=== PATIENT | female | born 1930 | race Caucasian/White ===

== ENCOUNTER 2016-12-19 12:01 | Inpatient (IN) | payer MEDICARE, OTHER ==
[~2016-12-19] VITALS: Ht 149.9 cm; Wt 40.4 kg
--- NOTE | 2016-12-19 12:01 | NUR ---
IV LINE STARTED BLOOD DRAWN AND SENT TO LAB.
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
[2016-12-19] MEDS ORDERED: LORAZEPAM INJ 2 MG/ML VIAL ONE (12:14)
[2016-12-19 12:17] LABS: BASOPHILS # (AUTO) 0.1 /CMM (0.0-0.2); BASOPHILS % (AUTO) 0.7 % (0.0-2.0); EOSINOPHILS # (AUTO) 0.2 /CMM (0.0-0.7); EOSINOPHILS % (AUTO) 2.6 % (0.0-6.0); HEMATOCRIT 40 % (33-45); HEMOGLOBIN 13.4 g/dL (11.5-14.8); LYMPHOCYTES # (AUTO) 1.6 /CMM (0.8-4.8); LYMPHOCYTES % (AUTO) 22.1 % (20.0-44.0); MEAN CORPUSCULAR HEMOGLOBIN 30 PG (26.0-33.0); MEAN CORPUSCULAR HGB CONC 34 g/dl (31.0-36.0); MEAN CORPUSCULAR VOLUME 87 fL (82-100); MONOCYTES # (AUTO) 0.5 /CMM (0.1-1.30); MONOCYTES % (AUTO) 7.3 % (2.0-12.0); NEUTROPHILS # (AUTO) 4.9 /CMM (1.8-8.9); NEUTROPHILS % (AUTO) 67.3 % (43.0-81.0); PLATELET COUNT (AUTO) 351 /CMM (150-450); RDW COEFFICIENT OF VARIATION 12.8 (11.5-15.0); RED BLOOD CELL COUNT(AUTO) 4.55 MIL/uL (4.0-5.2); WHITE BLOOD COUNT (AUTO) 7.3 K/uL (4.3-11.0)
[2016-12-19 12:25] LABS: INR 0.99 (0.87-1.13); PROTHROMBIN TIME 10.3 SECS (9.5-12.7)
--- NOTE | 2016-12-19 12:25 | NUR ---
PATIENT TAKEN TO CT SCAN VIA STRETCHER.
[2016-12-19 12:28] LABS: CALCIUM, SERUM 8.9 mg/dL (8.5-10.1); CARBON DIOXIDE 28 mmol/L (21-32); CHLORIDE 109 mmol/L (98-107); CREATININE 0.9 mg/dL (0.6-1.3); GLUCOSE 85 mg/dL (74-106); POTASSIUM 4.4 mmol/L (3.5-5.1); SODIUM SERUM 143 mmol/L (136-145); UREA NITROGEN, BLOOD 25 mg/dL (7-18)
[2016-12-19 12:30] LABS: TROPONIN I < 0.017 ng/mL (0.00-0.056)
[2016-12-19] MEDS ORDERED: LORAZEPAM INJ 2 MG/ML VIAL IV ONE (12:30)
--- NOTE | 2016-12-19 14:57 | NUR ---
[phone] [facility] DAUGHTER
--- NOTE | 2016-12-19 15:06 | NUR ---
CALLED CRYSTAL, WEIGHT CONTROL ENGINEER, TO COME SEE PT
--- NOTE | 2016-12-19 15:38 | NUR ---
MARÍA received a call from Vianca in ED requesting to assess pt. since she is ready for discharge and they cannot get hold of pt's daughter Zoey. MARÍA contacted Zoey who informed SW that her mom is unable to care for herself at home and she would like to speak with the doctor. MARÍA informed Zoey she will go to ED and call her from there. signal tower operator Ron called pt's daughter Zoey regarding pt's disposition. MARÍA met with pt. bedside. Pt. is alert and oriented x 4. Pt. lives with her daughter Zoey and a roommate in [place]. MARÍA inquired with pt. if she has a caregiver at home. Pt. stated "everyone pitches in" MARÍA asked pt. if she would like to be placed in a [facility] facility and pt. stated., " absolutely no". MARÍA offered pt. home health services which pt. is open to receiving at home. MARÍA informed MINH Fonseca that pt. is interested in home health. MARÍA will inform egg caser Sayda to arrange for home health for pt. MINH Fonseca informed MARÍA he will contact pt's daughter Zoey regarding discharge plan. MARÍA followed up with egg caser Sayda regarding home health. Sayda informed MARÍA she will arrange home health and follow up with ROSA Fonesca in ED.
--- NOTE | 2016-12-19 16:35 | NUR ---
REKHA TOTH, MIKAYLA FRAUSTO NP TENANT COORDINATOR
--- NOTE | 2016-12-19 16:36 | NUR ---
CALLED NURSING SUP. FOR MS BED
[2016-12-19] MEDS ORDERED: hydrALAZINE HCL IV 20 MG VIAL ONE (16:55)
--- NOTE | 2016-12-19 16:55 | NUR ---
REPORT GIVEN TO DEDE ON MS 2 FOR CONTINUITY OF CARE
[2016-12-19] MEDS ORDERED: hydrALAZINE HCL IV 20 MG VIAL IV ONE (17:00)
--- NOTE | 2016-12-19 17:05 | NUR ---
PATIENT AND DAUGHTER UNABLE TO RECALL HOME MEDICATIONS AT THIS TIME. BOTH INFORMED TO PROVIDE HOSPITAL THE HOME MEDICATIONS AT EARLIEST CONVENIENCE.
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
[2016-12-19] MEDS ORDERED: MAG HYDROX/AL HYDROX/SIMETH 30 ML UDC PO PRN (19:00)
[2016-12-19] MEDS ORDERED: Z GUARD REMEDY 2 OZ OINT TP PRN (19:00)
[2016-12-19] MEDS ORDERED: ZOLPIDEM TARTRATE 5 MG TABLET PO PRN (19:00)
[2016-12-19] MEDS ORDERED: ACETAMINOPHEN 325 MG TABLET PO PRN (19:00)
[2016-12-19] MEDS ORDERED: ONDANSETRON HCL/PF 4 MG/2 ML VIAL IVP PRN (19:00)
[2016-12-19] MEDS ORDERED: hydrALAZINE HCL 10 MG TABLET PO PRN (19:00)
--- NOTE | 2016-12-19 19:32 | NUR ---
MS RN NOTES RECEIVED PT IN BED, AWAKE, A/O X 3. VERBALLY RESPONSIVE. NO DISTRESS, NO SOB NOTED. RESPIRATION IS EVEN AND UNLABORED. IV SITE ON LAC INTACT AND PATENT, NO S/S OF INFILTRATION NOTED. PT IS ON CARDIAC DIET SARAH WELL. ALL NEEDS ATTENDED AND MET. KEPT COMFORTABLE. SAFETY PRECAUTIONS OBSERVED. BED ON LOWEST LEVEL. CALL LIGHT WITHIN REACH. WILL CONTINUE TO MONITOR.
[2016-12-19 20:00] VITALS: BP 144/93
[2016-12-19 22:00] VITALS: BP 146/93
[2016-12-20 06:23] LABS: BASOPHILS # (AUTO) 0.1 /CMM (0.0-0.2); BASOPHILS % (AUTO) 1.1 % (0.0-2.0); EOSINOPHILS # (AUTO) 0.2 /CMM (0.0-0.7); EOSINOPHILS % (AUTO) 3.5 % (0.0-6.0); HEMATOCRIT 39 % (33-45); LYMPHOCYTES # (AUTO) 1.7 /CMM (0.8-4.8); LYMPHOCYTES % (AUTO) 28.2 % (20.0-44.0); MEAN CORPUSCULAR HEMOGLOBIN 30 PG (26.0-33.0); MEAN CORPUSCULAR HGB CONC 33 g/dl (31.0-36.0); MEAN CORPUSCULAR VOLUME 89 fL (82-100); MONOCYTES # (AUTO) 0.5 /CMM (0.1-1.30); MONOCYTES % (AUTO) 7.5 % (2.0-12.0); NEUTROPHILS # (AUTO) 3.7 /CMM (1.8-8.9); NEUTROPHILS % (AUTO) 59.7 % (43.0-81.0); PLATELET COUNT (AUTO) 297 /CMM (150-450); RDW COEFFICIENT OF VARIATION 13.8 (11.5-15.0); RED BLOOD CELL COUNT(AUTO) 4.39 MIL/uL (4.0-5.2); WHITE BLOOD COUNT (AUTO) 6.2 K/uL (4.3-11.0)
[2016-12-20 06:43] LABS: CARBON DIOXIDE 27 mmol/L (21-32); CHLORIDE 110 mmol/L (98-107); GLUCOSE 83 mg/dL (74-106); SODIUM SERUM 145 mmol/L (136-145)
[2016-12-20 06:44] LABS: CALCIUM, SERUM 8.7 mg/dL (8.5-10.1); CREATININE 0.8 mg/dL (0.6-1.3); MAGNESIUM 1.8 mg/dL (1.8-2.4); PHOSPHORUS 3.4 mg/dL (2.5-4.9); UREA NITROGEN, BLOOD 23 mg/dL (7-18)
[2016-12-20 06:45] LABS: CHOLESTEROL 155 mg/dL (<200); HDL CHOLESTEROL 44 mg/dL (40-60); LDL 83 mg/dL (0-99); TRIGLYCERIDES 65 mg/dL (30-150)
--- NOTE | 2016-12-20 07:19 | NUR ---
MS RN OPENING NOTES PATIENT RECEIVED AWAKE IN BED IN NO ACUTE SIGNS OF DISTRESS. A/O X 3, NO C/O PAIN OR DISCOMFORTS AT THIS TIME. ON ROOM AIR, RESPIRATION IS EVEN AND UNLABORED. IV ACCESS ON LEFT AC G#18 AND RIGHT FA G#20 BOTH INTACT AND PATENT. BED IN LOW POSITION AND LOCKED. CALL LIGHT WITHIN REACH. WILL MAINTAIN ALL SAFETY MEASURES AND WILL CONTINUE TO MONITOR PT ACCORDINGLY
--- NOTE | 2016-12-20 07:25 | NUR ---
MS RN NOTES PT IN BED, RESTING COMFORTABLY AT THIS TIME, AROUSES EASILY. A/O X 3. VERBALLY RESPONSIVE. NO DISTRESS, NO SOB NOTED. RESPIRATION IS EVEN AND UNLABORED. IV SITE ON LAC INTACT AND PATENT, NO S/S OF INFILTRATION NOTED. PT IS ON CARDIAC DIET SARAH WELL. ALL NEEDS ATTENDED AND MET. KEPT COMFORTABLE. SAFETY PRECAUTIONS OBSERVED. BED ON LOWEST LEVEL. CALL LIGHT WITHIN REACH. ENDORSED TO MINH AGUAYO FOR DAYANA. .
[2016-12-20 08:00] VITALS: BP 134/81
[2016-12-20] MEDS: PANTOPRAZOLE 40 MG TABLET.DR PO SCH (08:41)
[2016-12-20] MEDS: AMLODIPINE BESYLATE 2.5 MG TABLET PO SCH (08:41)
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
--- NOTE | 2016-12-20 11:38 | NUR ---
RN NOTES COLLECTED URINE SPECIMEN FOR URINE CX AND URINALYSIS.
[2016-12-20 11:52] LABS: APPEARANCE,URINE CLOUDY (CLEAR); BILIRUBIN,URINE NEGATIVE (NEGATIVE); BLOOD, URINE NEGATIVE Ery/uL (NEGATIVE); COLOR,URINE YELLOW (YELLOW); KETONES,URINE NEGATIVE (NEGATIVE); LEUKOCYTE ESTERASE ,URINE 1+ (NEGATIVE); NITRITE, URINE POSITIVE (NEGATIVE); PROTEIN,URINE NEGATIVE (NEGATIVE); UGLUCOSE NEGATIVE (NEGATIVE); UROBILINOGEN,URINE 0.2 EU/dL (0.2)
[2016-12-20 12:01] LABS: BACTERIA,URINE 1+ /HPF (None Seen); RBC,URINE 0-2 /HPF (0-2)
[2016-12-20 12:02] LABS: CALCIUM OXALATE CRYSTALS,UR Few /HPF (None Seen); SQUAMOUS EPITHELIAL CELL,UR Few /HPF (None Seen)
--- NOTE | 2016-12-20 12:18 | NUR ---
RN NOTES PATIENT U/A RESULTS CAME WITH HIGH URINE WBC 11-20 AND URINE BACTERIA 1+, REMOTE OPERATIONS PRODUCER JETT MADE AWARE WITH ORDER TO START MICROBID (NITROFURAN) 100MG CAP Q 12HRS FOR UTI. WILL CONTINUE TO MONITOR
[2016-12-20] MEDS ORDERED: NITROFURANTOIN/NITROFURAN MAC 100 MG CAPSULE PO SCH (14:30)
[2016-12-20 16:00] VITALS: BP 128/79
[2016-12-20] MEDS: HYDROCODONE/APAP 5/325MG 1 EACH TABLET PO PRN ×2 (18:51→23:41)
--- NOTE | 2016-12-20 19:03 | NUR ---
MS RN CLOSING NOTES PATIENT AWAKE AND RESTING IN BED. A/O X 3, VERBALLY RESPONSIVE WITH C/O PAIN ON LEFT HIP WITH INTENSITY OF 6/10, NORCO 5/325MG GIVEN. ON ROOM AIR, RESPIRATION IS EVEN AND UNLABORED. ALL NEEDS AND CARE PROVIDED WELL. IV ACCESS ON LEFT AC G#18 AND RIGHT FA G#20 BOTH INTACT AND PATENT. BED IN LOW POSITION AND LOCKED. CALL LIGHT WITHIN REACH. ALL SAFETY MEASURES MAINTAINED. WILL ENDORSED TO DIRECTOR GEOPHYSICAL LABORATORY NURSE FOR DAYANA.
--- NOTE | 2016-12-20 19:30 | NUR ---
MSRN FULLY AWAKE, ASSISTED LATE DINNER. HAD 2 BITES OF CHICKEN AND RICE. REFUSED TO EAT MORE, ABLE TO DRINK WATER LARGE AMOUNT. INCONTINENT, DIAPERED. STATED WANTED TO HAVE MEDICINE FOR SLEEP LATER, WILL CALL.
[2016-12-20 20:00] VITALS: BP 138/81
--- NOTE | 2016-12-20 20:55 | NUR ---
MSRN AMBIEN 5 MG PO ADMINISTERED REQUESTED. HS CARE STARTED. STATED HAD RELIEF OF PAIN FROM PAIN MEDS GIVEN AROUND PAST 6PM STATED BY PATIENT. REPOSITIONED, KEPT COMFORTABLE.
--- NOTE | 2016-12-20 23:50 | NUR ---
MSRN BACK PAIN KIKO LEFT SIDE NECK, NORCO ADMINISTERED. ALL NEEDS ATTENDED.
--- NOTE | 2016-12-21 06:30 | NUR ---
DELMY SLEPT WELL FROM [place]. CLOSELY WATCHED.
[2016-12-21 06:33] LABS: BASOPHILS # (AUTO) 0.1 /CMM (0.0-0.2); BASOPHILS % (AUTO) 1.2 % (0.0-2.0); EOSINOPHILS # (AUTO) 0.3 /CMM (0.0-0.7); EOSINOPHILS % (AUTO) 4.6 % (0.0-6.0); HEMATOCRIT 38 % (33-45); HEMOGLOBIN 12.6 g/dL (11.5-14.8); LYMPHOCYTES # (AUTO) 1.8 /CMM (0.8-4.8); LYMPHOCYTES % (AUTO) 26.3 % (20.0-44.0); MEAN CORPUSCULAR HEMOGLOBIN 30 PG (26.0-33.0); MEAN CORPUSCULAR HGB CONC 34 g/dl (31.0-36.0); MEAN CORPUSCULAR VOLUME 89 fL (82-100); MONOCYTES # (AUTO) 0.5 /CMM (0.1-1.30); MONOCYTES % (AUTO) 6.7 % (2.0-12.0); NEUTROPHILS # (AUTO) 4.2 /CMM (1.8-8.9); NEUTROPHILS % (AUTO) 61.2 % (43.0-81.0); PLATELET COUNT (AUTO) 285 /CMM (150-450); RDW COEFFICIENT OF VARIATION 13.8 (11.5-15.0); RED BLOOD CELL COUNT(AUTO) 4.26 MIL/uL (4.0-5.2); WHITE BLOOD COUNT (AUTO) 6.9 K/uL (4.3-11.0)
[2016-12-21 06:58] LABS: CALCIUM, SERUM 8.5 mg/dL (8.5-10.1); CARBON DIOXIDE 29 mmol/L (21-32); CHLORIDE 106 mmol/L (98-107); CREATININE 0.7 mg/dL (0.6-1.3); GLUCOSE 81 mg/dL (74-106); MAGNESIUM 1.8 mg/dL (1.8-2.4); PHOSPHORUS 3.4 mg/dL (2.5-4.9); POTASSIUM 4.1 mmol/L (3.5-5.1); SODIUM SERUM 139 mmol/L (136-145); UREA NITROGEN, BLOOD 19 mg/dL (7-18)
--- NOTE | 2016-12-21 07:10 | NUR ---
MS RN INITIAL NOTE REPORT RECEIVED AT THE BEDSIDE. PATIENT IS SLEEPING. NO SOB OR DISTRESS NOTED AT THIS TIME. PATIENT DOES NOT APPEAR TO BE IN PAIN, NO FACIAL GRIMACE NOTED. BED IN A LOW POSITION, CALL LIGHT WITHIN PATIENT REACH. WILL CONTINUE TO MONITOR.
[2016-12-21 08:00] VITALS: BP 131/71
[2016-12-21] MEDS: PANTOPRAZOLE 40 MG TABLET.DR PO SCH (08:05)
[2016-12-21] MEDS: AMLODIPINE BESYLATE 2.5 MG TABLET PO SCH (08:05)
[2016-12-21] MEDS: NITROFURANTOIN/NITROFURAN MAC 100 MG CAPSULE PO SCH ×2 (08:05→20:45)
[2016-12-21] MEDS: HYDROCODONE/APAP 5/325MG 1 EACH TABLET PO PRN ×2 (09:25→15:47)
--- NOTE | 2016-12-21 14:27 | NUR ---
RN NOTES PATIENT IS INDEPENDENT WITH TURNING, BUT TENDS TO FAVOR HER LEFT SIDE. PATIENT HAS BEEN ON HER LEFT SIDE FOR THE LAST 4 HOURS. EXPLAINED THE IMPORTANCE OF FREQUENT POSITION CHANGES, BUT PATIENT STATES THAT SHE IS COMFORTABLE IN THE POSITION AND DOES NOT WANT TO TURN.
[2016-12-21 16:00] VITALS: BP 133/69
[2016-12-21] MEDS ORDERED: DIAZEPAM 2 MG TABLET PO PRN (18:30)
[2016-12-21] MEDS: BOOST PLUS FOOD-CHOCLATE 237 ML BOX PO SCH (18:51)
[2016-12-21] MEDS: LORAZEPAM 1 MG TABLET PO PRN (18:52)
--- NOTE | 2016-12-21 18:59 | NUR ---
MS RN CLOSING NOTES NO SIGNIFICANT CHANGES IN PATIENT CONDITION THROUGHOUT THE SHIFT. NO SOB OR DISTRESS NOTED AT THIS TIME. PATIENT DENIES PAIN. BED IN A LOW POSITION, CALL LIGHT WITHIN PATIENT REACH. WILL ENDORSE FOR DAYANA.
[2016-12-21 20:00] VITALS: BP 169/72
--- NOTE | 2016-12-22 06:19 | NUR ---
MS RN NOTES AWAKE & RESPONSIVE. NOT IN ANY DISTRESS. NO SOB NOTED. DENIES ANY PAIN OR DISCOMFORT AT THIS TIME. AM CARE DONE. MONITORED ACCORDINGLY. CALL LIGHT WITHIN REACH. BED IN LOWEST POSITION. SR UP X 3 WITH BED ALARM ON FOR SAFETY. WILL ENDORSE TO NEXT SHIFT.
[2016-12-22] MEDS: HYDROCODONE/APAP 5/325MG 1 EACH TABLET PO PRN ×2 (06:25→17:43)
[2016-12-22 07:09] LABS: THYROID STIMULATING HORMONE 19.601 uIU/mL (0.358-3.74)
[2016-12-22 08:00] VITALS: BP 134/71
--- NOTE | 2016-12-22 08:14 | NUR ---
RN NOTES ATTEMPTED TO ADMINISTER MORNING MEDICATIONS. PATIENT STATES "I JUST WANT TO SLEEP, PLEASE COME BACK LATER." PATIENT IS ALSO NOT READY TO EAT BREAKFAST. WILL ATTEMPT TO ADMINISTER AGAIN SOON.
[2016-12-22] MEDS: NITROFURANTOIN/NITROFURAN MAC 100 MG CAPSULE PO SCH ×2 (09:11→20:57)
[2016-12-22] MEDS: AMLODIPINE BESYLATE 2.5 MG TABLET PO SCH (09:11)
[2016-12-22] MEDS: PANTOPRAZOLE 40 MG TABLET.DR PO SCH (09:11)
--- NOTE | 2016-12-22 09:12 | NUR ---
RN NOTES MORNING BOOST IS NOT ON THE FLOOR. CALLED [facility] WHO STATES THEY WILL DELIVER IT SOON THEY CAN.
[2016-12-22] MEDS: BOOST PLUS FOOD-CHOCLATE 237 ML BOX PO SCH ×2 (09:22→16:12)
[2016-12-22 16:00] VITALS: BP 131/78
[2016-12-22] MEDS ORDERED: DIAZEPAM 5 MG TABLET PO PRN (18:30)
--- NOTE | 2016-12-22 19:40 | NUR ---
MSRN SLEEPING OF THIS TIME. TO CONTINUE.
[2016-12-22 20:00] VITALS: BP 150/75
--- NOTE | 2016-12-22 21:40 | NUR ---
MSRN DUE MEDS GIVEN. REQUESTED FOR VALIUM FOR SLEEP. ADMINISTERED.
--- NOTE | 2016-12-23 03:40 | NUR ---
MSRN SEVERE PAIN ON RIGHT ARTHRITIC PAIN AND GEN PAIN. NORCO 1 TAB PO ADMINISTERED. DIAPER CHANGED. AGREED TO HAVE PICTURE TAKEN ON HER SKIN TEARS. REPOSITIONED. ASSISTED PUDDING BY VOCATIONAL REHABILITATION COUNSELOR. ATE WELL.
[2016-12-23] MEDS: HYDROCODONE/APAP 5/325MG 1 EACH TABLET PO PRN ×2 (03:47→15:23)
--- NOTE | 2016-12-23 04:31 | NUR ---
MSRN QUIET, TRYING TO GO BACK TO SLEEP
--- NOTE | 2016-12-23 06:30 | NUR ---
MSRN SLEEPING APPEARS COMFORTABLE
[2016-12-23 08:00] VITALS: BP 165/87
--- NOTE | 2016-12-23 08:00 | NUR ---
MS 2 RN AM NOTES RECEIVED PATIENT ALERT,AWAKE AND VERBALLY RESPONSIVE. DENIES PAIN, SOB OR DISTRESS.NO FACIAL GRIMACE NOTED. BED IN A LOW POSITION, CALL LIGHT WITHIN PATIENT REACH. WILL CONTINUE TO MONITOR.
[2016-12-23] MEDS: NITROFURANTOIN/NITROFURAN MAC 100 MG CAPSULE PO SCH (09:33)
[2016-12-23] MEDS: AMLODIPINE BESYLATE 2.5 MG TABLET PO SCH (09:33)
[2016-12-23] MEDS: BOOST PLUS FOOD-CHOCLATE 237 ML BOX PO SCH ×2 (09:33→16:51)
[2016-12-23] MEDS: PANTOPRAZOLE 40 MG TABLET.DR PO SCH (09:33)
--- NOTE | 2016-12-23 11:34 | NUR ---
SEEN BY PChriss AND ABLE TO AMBULATE WITH [facility]WW CONTACT GUARD IN A VERY SLOW PACE.P.Shankar. RECOMMENDS ACUTE REHAB PLACEMENT.
[2016-12-23] MEDS ORDERED: AMLO2.5T PO (12:08)
[2016-12-23] MEDS ORDERED: Boost Plus Food-Choclate PO (12:08)
[2016-12-23] MEDS ORDERED: HYDR-4075 PO (12:08)
[2016-12-23] MEDS ORDERED: LORA1TAB PO (12:08)
[2016-12-23] MEDS ORDERED: DIAZ5TAB4 PO (12:08)
[2016-12-23] MEDS ORDERED: LEVO125T8 PO (12:08)
[2016-12-23] MEDS ORDERED: NITR100C15 PO (12:08)
[2016-12-23] MEDS: LORAZEPAM 1 MG TABLET PO PRN (15:23)
[2016-12-23 16:00] VITALS: BP 158/87
--- NOTE | 2016-12-23 16:50 | NUR ---
DISCHARGED PT TO [facility] ROOM 102 VIA AMBULANCE.PT WAS SO AGITATED AND UPSET WITH HER MISSING CIGARRETTES AND HER CONCERNS ABOUT HER APARTMENT SAYING THAT SHE WILL LOSE HER APARTMENT AND HAS TO SETTLE IMPORTANT MATTERS WHICH WAS TAKEN CARED OF BY HER DAUGHTER,WINSTON IN THE END.TOOL DESIGN ENGINEER,ABIDA AT BEDSIDE.PT CALMED DOWN.DENIES PAIN OR DISTRESS.REPORT CALLED IN TO MINH DALTON OF [facility].
== END 2016-12-23 16:50 | DRG 77 ==
LOC: ER 12:04 → MEDSG2 16:57
PROVIDERS: ADMIT Nurse Practitioner Acute Care; ATTEND Nurse Practitioner Acute Care
DX: I67.4 Hypertensive encephalopathy (principal); G92 Toxic encephalopathy; N39.0 Urinary tract infection, site not specified; B96.20 Unspecified Escherichia coli [E. coli] as the cause of diseases classified elsewhere; E03.9 Hypothyroidism, unspecified; F41.9 Anxiety disorder, unspecified; M16.12 Unilateral primary osteoarthritis, left hip; M85.80 Other specified disorders of bone density and structure, unspecified site; R29.6 Repeated falls; I51.7 Cardiomegaly; R47.1 Dysarthria and anarthria; Z87.891 Personal history of nicotine dependence; I10 Essential (primary) hypertension
CPT/HCPCS: 36415; 70450-TC; 71010-TC; 73502; 73560-TC; 80048-TC; 80061-TC; 81000-TC; 83735-TC; 84100-TC; 84439-TC; 84443-TC; 84484-TC; 85025-TC; 85730-TC; 87081-TC; 87086-TC; 87186-TC; 93307-TC; 97001-TC; 97116-TC; 97530-TC; A4606; J0360; J2060; Z7610

== ENCOUNTER 2021-10-03 15:54 | Emergency (ER) | payer OTHER ==
[~2021-10-03] VITALS: Ht 152.4 cm; Wt 47.2 kg
[~2021-10-03 15:54] MED LIST: AMLO2.5T4 PO; Boost Plus Food-Choclate PO; DIAZ5TAB4 PO; HYDR-4075 PO; LEVO125T8 PO; LORA1TAB PO; NITR100C15 PO
[2021-10-03] MEDS ORDERED: ONDANSETRON HCL/PF 4 MG/2 ML VIAL IVP ONE (16:00)
[2021-10-03] MEDS ORDERED: IV NS 0.9% 1,000 ML BAG IV ONE (16:00)
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
--- NOTE | 2021-10-03 16:05 | NUR ---
AT BED SIDE
--- NOTE | 2021-10-03 16:07 | NUR ---
CARTOGRAPHY PROFESSOR. AT BED SIDE
[2021-10-03] MEDS ORDERED: ONDANSETRON HCL/PF 4 MG/2 ML VIAL ONE (16:11)
[2021-10-03] MEDS ORDERED: PANTOPRAZOLE 80 MG in IV NS 0.9% 500 ML IV ONE (16:30)
[2021-10-03] MEDS ORDERED: ONDANSETRON HCL/PF - ER 4 MG/2 ML VIAL IV ONE (16:30)
[2021-10-03 16:31] LABS: BASOPHILS # (AUTO) 0.1 K/uL (0.0-0.2); BASOPHILS % (AUTO) 0.9 % (0.0-2.0); EOSINOPHILS % (AUTO) 1.6 % (0.0-6.0); HEMATOCRIT 40 % (33-45); HEMOGLOBIN 13.4 g/dL (11.5-14.8); LYMPHOCYTES # (AUTO) 1.1 K/uL (0.8-4.8); LYMPHOCYTES % (AUTO) 13.6 % (20.0-44.0); MEAN CORPUSCULAR HGB CONC 34 g/dl (31.0-36.0); MEAN CORPUSCULAR VOLUME 88 fL (82-100); MONOCYTES # (AUTO) 0.3 K/uL (0.1-1.30); MONOCYTES % (AUTO) 3.3 % (2.0-12.0); NEUTROPHILS # (AUTO) 6.5 K/uL (1.8-8.9); NEUTROPHILS % (AUTO) 80.6 % (43.0-81.0); PLATELET COUNT (AUTO) 277 K/uL (150-450); RED BLOOD CELL COUNT(AUTO) 4.49 MIL/uL (4.0-5.2); WHITE BLOOD COUNT (AUTO) 8.1 K/uL (4.3-11.0)
[2021-10-03] MEDS ORDERED: AMLO-212 PO (16:39)
[2021-10-03] MEDS ORDERED: LEVO150T8 PO (16:39)
[2021-10-03 16:48] LABS: ALANINE AMINOTRANSFERASE 13 U/L (12-78); ALBUMIN 3.6 g/dL (3.4-5.0); ALKALINE PHOSPHATASE 109 U/L (46-116); ASPARTATE AMINOTRANSFERASE 22 U/L (15-37); BILIRUBIN,DIRECT 0.1 mg/dL (0.0-0.2); BILIRUBIN,TOTAL 0.7 mg/dL (0.2-1.0); CARBON DIOXIDE 24 mmol/L (21-32); CHLORIDE 106 mmol/L (98-107); GLUCOSE 176 mg/dL (74-106); LIPASE 86 U/L (73-393); POTASSIUM 3.7 mmol/L (3.5-5.1); SODIUM SERUM 140 mmol/L (136-145); TOTAL PROTEIN, SERUM 7.4 g/dL (6.4-8.2); UREA NITROGEN, BLOOD 23 mg/dL (7-18)
[2021-10-03 16:50] LABS: OCCULT BLOOD STOOL NEGATIVE (NEGATIVE)
--- NOTE | 2021-10-03 17:00 | NUR ---
PATIENT WENT FOR CT ABDOMEN VIA [facility]
--- NOTE | 2021-10-03 17:08 | NUR ---
SWAB FOR COVID 19 SENT TO LAB.
[2021-10-03 17:21] LABS: CALCIUM, SERUM 9.5 mg/dL (8.5-10.1)
[2021-10-03] MEDS ORDERED: LORAZEPAM INJ 2 MG/ML VIAL ONE ×2 (17:45→21:05)
[2021-10-03] MEDS ORDERED: LORAZEPAM INJ 2 MG/ML VIAL IV ONE ×2 (18:00→21:30)
--- NOTE | 2021-10-03 19:16 | NUR ---
DR. GRESHAM SPEAKING WITH DR. KNIGHT FOR PEER TO PEER.
--- NOTE | 2021-10-03 19:26 | NUR ---
transportation [facility] 124-A report [phone] rn karlene will take report [facility] @9pm if any questions or changes [phone] (uche)
--- NOTE | 2021-10-03 19:30 | NUR ---
REPORT GIVEN TO NURSE MADISON FOR DAYANA
--- NOTE | 2021-10-03 20:03 | NUR ---
GAVE REPORT TO WELL SHOOTER AT BEDSIDE
--- NOTE | 2021-10-03 20:15 | NUR ---
WINSTON [phone] DAUGHTER
--- NOTE | 2021-10-03 20:54 | NUR ---
REPORT GIVEN TO MARIA L
--- NOTE | 2021-10-03 21:17 | NUR ---
CALLED [facility]ARD[facility] BP 185/108/ SPOKE TO CHARGE NURSE KAITLIN AND THEY ARE OKAY WITH ACCEPTING.
--- NOTE | 2021-10-03 21:33 | NUR ---
DAUGHTER DOES NOT WISH FOR TRANSFER TO [facility]. DISCUSSING WITH NURSING SUP AND ER .
--- NOTE | 2021-10-03 21:56 | NUR ---
Patient's daughter does not wish to proceed with medical care recommended by Dr. Mojica. Patient given information related to possible complications, up to and including , which could occur as a result of leaving the hospital at this time. Patient's daughter verbalizes understanding of risks involved due to leaving against medical advice. Patient's daughter has signed AMA form.
[2021-10-03 22:47] VITALS: BP 185/106
--- NOTE | 2021-10-04 00:10 | NUR ---
[facility] INTAKE CASE [id number]. SPOKE WITH DARSHANA TO REPORT.
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
--- NOTE | 2021-10-04 01:52 | NUR ---
RECEIVED A CALL FROM MARIS, AFTER HOURS SWEEPING COMPOUND BLENDER FROM [employer]. ACKNOWLDGING THAT THE CASE HAS BEEN RECEIVED AND WILL BE ASSIGNED TO [facility]. SHE ADVICED THAT THERE IS NO NEED TO FILE THE [id number] FORM BECAUSE THAT IS WHAT SHE IS ALREADY GENERATING. THE CALL TO [facility] CALL AND RECEIVING A INTAKE NUMBER WAS ALL NEEDED.
== END 2021-10-03 22:00 | disposition left against medical advice (07) ==
LOC: ER 16:00
DX: K92.2 Gastrointestinal hemorrhage, unspecified (principal); Z79.890 Hormone replacement therapy; G93.40 Encephalopathy, unspecified; I11.9 Hypertensive heart disease without heart failure; I44.4 Left anterior fascicular block; E03.9 Hypothyroidism, unspecified; R29.6 Repeated falls; M16.11 Unilateral primary osteoarthritis, right hip; Z88.6 Allergy status to analgesic agent; K92.0 Hematemesis; Z20.822 Contact with and (suspected) exposure to COVID-19; Z53.29 Procedure and treatment not carried out because of patient's decision for other reasons
CPT/HCPCS: 36415; 71045; 74176; 80048; 80076; 82272; 83605; 83690; 84484; 85025; 85730; 86850; 87040 ×2; 87081; 87426; 93005; 96361; 96374; 96375; 96376; 99285; C9113; J2060 ×2; J2405 ×2; J7040; C9803

== ENCOUNTER 2022-03-26 22:15 | Emergency (ER) | payer OTHER ==
[~2022-03-26] VITALS: Ht 152.4 cm; Wt 45.4 kg
[~2022-03-26 22:15] MED LIST changes: +AMLO-212 PO; -AMLO2.5T4 PO; -Boost Plus Food-Choclate PO; -DIAZ5TAB4 PO; -HYDR-4075 PO; -LEVO125T8 PO; +LEVO150T8 PO; -LORA1TAB PO; -NITR100C15 PO
--- NOTE | 2022-03-26 22:40 | NUR ---
MARY [phone] FROM HOME FOR CONFUSION. PHYLLIS CALLED. PT WAS FOUND STANDING WITH HER WALKER SCREAMING FOR HELP. PER PATIENT SHE COULD'NT WALK BACK TO BED. PLACED PATIENT IN ROOM. ATTACHED TO MONITOR. PATIENT IS HARD OF HEARING. UNKEMPT. VITALS CHECKED.
--- NOTE | 2022-03-26 23:07 | NUR ---
COVID SWAB AND MRSA SWAB DONE AND SENT TO LAB
--- NOTE | 2022-03-26 23:20 | NUR ---
MONTESSORI PRESCHOOL TEACHER AT PT'S BEDSIDE
--- NOTE | 2022-03-26 23:21 | NUR ---
PT TAKEN TO CT VIA [facility]
[2022-03-26 23:46] LABS: BILIRUBIN,URINE NEGATIVE (NEGATIVE); COLOR,URINE YELLOW (YELLOW); LEUKOCYTE ESTERASE ,URINE NEGATIVE (NEGATIVE); NITRITE, URINE NEGATIVE (NEGATIVE); PROTEIN,URINE NEGATIVE (NEGATIVE); UGLUCOSE NEGATIVE (NEGATIVE); UROBILINOGEN,URINE 0.2 EU/dL (0.2)
--- NOTE | 2022-03-27 00:10 | NUR ---
MARK DEAN: [phone]
--- NOTE | 2022-03-27 00:17 | NUR ---
ADDRESS: [address] [place] [address] [address], [place] [phone]
[2022-03-27 00:41] LABS: BASOPHILS # (AUTO) 0.1 K/uL (0.0-0.2); BASOPHILS % (AUTO) 1.1 % (0.0-2.0); EOSINOPHILS % (AUTO) 1.4 % (0.0-6.0); HEMATOCRIT 39 % (33-45); HEMOGLOBIN 13.3 g/dL (11.5-14.8); LYMPHOCYTES # (AUTO) 1.2 K/uL (0.8-4.8); MEAN CORPUSCULAR HGB CONC 34 g/dl (31.0-36.0); MEAN CORPUSCULAR VOLUME 87 fL (82-100); MONOCYTES # (AUTO) 0.5 K/uL (0.1-1.30); MONOCYTES % (AUTO) 5.8 % (2.0-12.0); NEUTROPHILS # (AUTO) 6.4 K/uL (1.8-8.9); NEUTROPHILS % (AUTO) 76.7 % (43.0-81.0); PLATELET COUNT (AUTO) 325 K/uL (150-450); RED BLOOD CELL COUNT(AUTO) 4.46 MIL/uL (4.0-5.2); WHITE BLOOD COUNT (AUTO) 8.3 K/uL (4.3-11.0)
[2022-03-27 00:58] LABS: CALCIUM, SERUM 8.9 mg/dL (8.5-10.1); CARBON DIOXIDE 26 mmol/L (21-32); CHLORIDE 104 mmol/L (98-107); GLUCOSE 96 mg/dL (74-106); POTASSIUM 4.2 mmol/L (3.5-5.1); SODIUM SERUM 138 mmol/L (136-145); UREA NITROGEN, BLOOD 22 mg/dL (7-18)
[2022-03-27 01:05] LABS: ALANINE AMINOTRANSFERASE 15 U/L (12-78); ALBUMIN 3.2 g/dL (3.4-5.0); ALKALINE PHOSPHATASE 115 U/L (46-116); ASPARTATE AMINOTRANSFERASE 17 U/L (15-37); BILIRUBIN,DIRECT 0.1 mg/dL (0.0-0.2); BILIRUBIN,TOTAL 0.3 mg/dL (0.2-1.0); TOTAL PROTEIN, SERUM 7.1 g/dL (6.4-8.2)
--- NOTE | 2022-03-27 03:13 | NUR ---
[facility] CALLED ETA 75-90 MINUTES AT MOST. COULD BE SOONER.
--- NOTE | 2022-03-27 03:18 | NUR ---
NOTIFIED DAUGHTER, MARK: [phone] THAT PT WILL BE DC VIA [facility]. AWAITING TRANSPORTATION
--- NOTE | 2022-03-27 04:12 | NUR ---
PT WAS PICKED UP BY [facility] AND DISCHARGED HOME VIA [facility] IN STABLE CONDITION
[2022-03-27 04:32] VITALS: BP 145/78
== END 2022-03-27 04:32 | disposition home or self-care (01) ==
LOC: ER 22:22
DX: R53.1 Weakness (principal); F03.90 Unspecified dementia, unspecified severity, without behavioral disturbance, psychotic disturbance, mood disturbance, and anxiety; R94.31 Abnormal electrocardiogram [ECG] [EKG]; Z20.822 Contact with and (suspected) exposure to COVID-19; Z88.5 Allergy status to narcotic agent; E03.9 Hypothyroidism, unspecified; I10 Essential (primary) hypertension
CPT/HCPCS: 36415; 70450-TC; 71045-TC; 80048-TC; 80076-TC; 84484-TC; 85025-TC; 85730-TC; 87081-TC; C9803